=== PATIENT | female | born 1985 | race Caucasian/White ===

== ENCOUNTER 2020-11-26 10:10 | Inpatient (IN) | payer BC, MEDICAID ==
[~2020-11-26] VITALS: Ht 170.2 cm; Wt 70.3 kg
[2020-11-26 10:28] VITALS: BP_SYST 135
--- NOTE | 2020-11-26 10:38 | NUR ---
Patient to ER bed 6 to gown for evaluation. Side rails up. Report given to ARIANNA Godinez.
--- NOTE | 2020-11-26 10:43 | NUR ---
PT C/O HEADACHE WITH STIFF NECK SINCE THURSDAY NIGHT. PT STATES A 6/10 PAIN WITH INTERMITTENT PAIN INCREASE TO 8/10. PT STATES EXEDRIN AND ADVIL NOT HELPING WITH PAIN RELIEF
--- NOTE | 2020-11-26 10:57 | NUR ---
ER Dr. SALAS at bedside examining patient.
[2020-11-26] MEDS ORDERED: NACL 0.9% 1,000 ML IV ONE (11:15)
[2020-11-26 11:31] LABS: BILIRUBIN,URINE NEGATIVE (NEGATIVE); BLOOD, URINE NEGATIVE (NEGATIVE); CLARITY/URINE CLEAR (CLEAR); COLOR,URINE YELLOW (YELLOW); GLUCOSE,URINE NEGATIVE (NEGATIVE); KETONES,URINE NEGATIVE (NEGATIVE); LEUKOCYTE ESTERASE ,URINE NEGATIVE (NEGATIVE); NITRITE, URINE NEGATIVE (NEGATIVE); PROTEIN URINE NEGATIVE (NEGATIVE); UROBILINOGEN,URINE 0.2 (0.2-1.0)
--- NOTE | 2020-11-26 11:48 | NUR ---
Patient transported to radiology via WHEELCHAIR, accompanied by TECH.
[2020-11-26 12:05] LABS: BASOPHILS % (AUTO) 0.7 % (0.0-2.0); EOSINOPHILS % (AUTO) 0.6 % (0.0-4.0); HEMATOCRIT 37.5 % (36-48); HEMOGLOBIN 12.5 g/dL (12.0-16.0); LYMPHOCYTES # (AUTO) 1.1 K/uL (1.0-5.5); LYMPHOCYTES % (AUTO) 16.1 % (20.5-51.5); MEAN CORPUSCULAR HEMOGLOBIN 30 pg (27-31); MEAN CORPUSCULAR HGB CONC 33 % (32-36); MEAN CORPUSCULAR VOLUME 91 fL (79.0-98.0); MONOCYTES # (AUTO) 0.3 K/uL (0.0-1.0); MONOCYTES % (AUTO) 4.5 % (1.7-9.3); NEUTROPHILS # (AUTO) 5.2 K/uL (1.8-7.7); NEUTROPHILS % (AUTO) 78.1 % (40.0-70.0); PLATELET COUNT (AUTO) 206 K/uL (130-430); RED BLOOD CELL COUNT(AUTO) 4.12 MIL/uL (4.2-6.2); RED CELL DISTRIBUTION WIDTH 13.4 % (9.0-15.0); WHITE BLOOD COUNT (AUTO) 6.6 K/uL (4.8-10.8)
[2020-11-26 12:06] LABS: CALCIUM 8.4 mg/dL (8.4-11.0); CREATININE 0.84 mg/dL (0.55-1.30); POTASSIUM 3.7 mmol/L (3.5-5.1)
[2020-11-26 12:12] LABS: ALBUMIN 3.8 g/dL (3.4-4.8); PROTHROMBIN TIME 9.9 SECS (9.5-12.5); TOTAL BILIRUBIN 0.4 mg/dL (0.0-1.0)
--- NOTE | 2020-11-26 12:35 | NUR ---
Dr. Vazquez in to perform procedure.
[2020-11-26] MEDS ORDERED: KETOROLAC TROMETHAMINE 30 MG VIAL IVP ONE (13:00)
[2020-11-26 13:33] LABS: CSF APPEARANCE CLEAR (CLEAR); CSF COLOR COLORLESS (COLORLESS); CSF GLUCOSE 58 mg/dL (40-70); CSF PROTEIN 83 mg/dL (15-45)
[2020-11-26 14:15] LABS: CSF RED BLOOD CELL COUNT 4 /uL (0-0); CSF WHITE BLOOD CELL COUNT 22 /uL (0-5)
[2020-11-26] MEDS ORDERED: cefTRIAXone 2 GM VIAL ONE (14:44)
--- NOTE | 2020-11-26 14:50 | NUR ---
Patient will be admitted to care of Dr. Ordoñez. Admitted to medsurg unit. Waiting for room assignment. Belongings list completed. Complete and up to date summary report printed. SBAR report to be given at bedside with opportunity for questions.
[2020-11-26] MEDS ORDERED: ONDANSETRON HCL 4 MG/2 ML VIAL IVP PRN (15:15)
[2020-11-26] MEDS ORDERED: METOCLOPRAMIDE HCL 10 MG/2 ML VIAL IVP PRN (15:15)
[2020-11-26] MEDS ORDERED: ACYCLOVIR IV 500 MG in D5W 100 ML IV ONE (15:15)
[2020-11-26] MEDS ORDERED: MORPHINE 4 MG INJ. 4 MG/ML VIAL IVP PRN (15:15)
[2020-11-26] MEDS ORDERED: NEU100 (15:23)
[2020-11-26] MEDS ORDERED: SERT100T (15:23)
[2020-11-26] MEDS ORDERED: VANCOMYCIN HCL 1 GM/NS PREMIX 250 ML IV ONE (16:00)
--- NOTE | 2020-11-26 16:00 | NUR ---
Spoke with Luna, treasury accountant of [facility]. Will call back with room number.
--- NOTE | 2020-11-26 16:16 | NUR ---
Report called to ARIANNA Meyer. Per Luna, auto rental supervisor patient to be brought at [id number].
--- NOTE | 2020-11-26 16:25 | NUR ---
Transfer to [facility] via [facility]. EMT present. IV present no signs or symptoms of infiltration.
--- NOTE | 2020-11-26 16:29 | NUR ---
RN note Patient received by technical sales advisor, in stable condition, complains of discomfort. Will provide comfort measures. IV is patent, no signs or symptoms of infiltration. Will continue to monitor.
--- NOTE | 2020-11-26 16:35 | NUR ---
CONSULTATION PAGED/CALLED Reason for Consultation: MENINGITIS Person Who was Notified: ELIAS Consulting Physician: DONTAE CHONG Plastic Sheeting Cutter Specialty: ID Ordering Physician: MELY
--- NOTE | 2020-11-26 17:15 | NUR ---
RN note Spoke with , updated on patients current status. no new orders at this time. Will come see patient.
[2020-11-26 17:58] VITALS: BP_SYST 106
[2020-11-26] MEDS: ACETAMINOPHEN 325 MG TABLET PO PRN (18:22)
--- NOTE | 2020-11-26 18:29 | NUR ---
Closing note Patient is resting in bed, A&Ox4. Complains of spinal and neck pain. Provided PRN medication. No signs or symptoms of respiratory distress. IV is infusing, no signs or symptoms of infiltration. All needs were met. Bed is in lowest position call light within reach, fall and aspiration precautions are in place. Will endorse report to speeder tender
[2020-11-26 20:20] VITALS: BP_SYST 110
[2020-11-26] MEDS: MORPHINE 2 MG/ML INJ. SYRINGE IVP PRN (20:32)
--- NOTE | 2020-11-26 20:32 | NUR ---
PAIN MGT PATIENT MEDICATED WITH MORPHINE FOR C/O HEADACHE/NECK/BACK PAIN. VITAL SIGNS STABLE. BED IN LOWEST LOCKED POSITION WITH ALARM ON. CALL LIGHT WITH IN REACH.
[2020-11-26] MEDS: ACYCLOVIR IV 500 MG in D5W 100 ML IV SCH (21:53)
--- NOTE | 2020-11-26 21:53 | NUR ---
ATB PATIENT DUE ANTIBIOTIC INFUSING. IV LINE INTACT AND PATENT.
--- NOTE | 2020-11-26 22:07 | NUR ---
OOB PATIENT ASSISTED OUT OF BED FOR BATHROOM USE. FALL PRECAUTION OBSERVED.
[2020-11-27] VITALS: BP_SYST 117
[2020-11-27] MEDS ORDERED: VANCOMYCIN HCL 1 GM/NS PREMIX 250 ML IV ONE
[2020-11-27] MEDS: MORPHINE 2 MG/ML INJ. SYRINGE IVP PRN (01:13)
--- NOTE | 2020-11-27 01:13 | NUR ---
PAIN MGT PATIENT MEDICATED WITH MORPHINE FOR C/O HEAD/NECK/BACK PAIN. VITAL SIGNS STABLE.
--- NOTE | 2020-11-27 01:30 | NUR ---
ID CONSULT DR. DONTAE CHONG MAKING ROUNDS FOR ID CONSULT. SEEN AND EXAMINED PATIENT AT BEDSIDE. ACKNOWLEDGE NEW ORDERS MADE.
[2020-11-27] MEDS ORDERED: cefTRIAXone 1 GM VIAL ONE (04:15)
--- NOTE | 2020-11-27 04:28 | NUR ---
ATB NEW ORDER FOR ROCEPHIN 2 GM IV INFUSING. IV LINE INTACT AND PATENT.
[2020-11-27] MEDS: ACYCLOVIR IV 500 MG in D5W 100 ML IV SCH ×3 (06:00→21:53)
--- NOTE | 2020-11-27 06:00 | NUR ---
ATB PATIENT DUE ANTIBIOTIC INFUSING. IV LINE INTACT AND PATENT.
--- NOTE | 2020-11-27 06:20 | NUR ---
MRI CHECKLIST MRI BRAIN CHECKLIST COMPLETED WITH PATIENT.
--- NOTE | 2020-11-27 06:38 | NUR ---
CLOSING NOTES PATIENT NEEDS ATTENDED. NO CHANGE IN CONDITION.
[2020-11-27 07:04] LABS: BASOPHILS % (AUTO) 0.7 % (0.0-2.0); EOSINOPHILS # (AUTO) 0.2 K/uL (0.0-0.4); EOSINOPHILS % (AUTO) 3.1 % (0.0-4.0); HEMATOCRIT 36.6 % (36-48); HEMOGLOBIN 12.1 g/dL (12.0-16.0); LYMPHOCYTES # (AUTO) 1.9 K/uL (1.0-5.5); LYMPHOCYTES % (AUTO) 32.1 % (20.5-51.5); MEAN CORPUSCULAR HEMOGLOBIN 30 pg (27-31); MEAN CORPUSCULAR HGB CONC 33 % (32-36); MEAN CORPUSCULAR VOLUME 92 fL (79.0-98.0); MONOCYTES # (AUTO) 0.4 K/uL (0.0-1.0); MONOCYTES % (AUTO) 6.8 % (1.7-9.3); NEUTROPHILS % (AUTO) 57.3 % (40.0-70.0); PLATELET COUNT (AUTO) 176 K/uL (130-430); RED BLOOD CELL COUNT(AUTO) 3.99 MIL/uL (4.2-6.2); RED CELL DISTRIBUTION WIDTH 13.1 % (9.0-15.0)
[2020-11-27 07:10] LABS: NEUTROPHILS # (AUTO) 3.4 K/uL (1.8-7.7)
--- NOTE | 2020-11-27 07:15 | NUR ---
OPENING NOTES: RECEIVED FROM PLASTIC FRAME INSERTER NURSE. PATIENT IS ASLEEP LAYING IN BED. TOLERATED OXYGEN ON ROOM AIR WITH NO DISTRESS NOTED. IV LINE PATENT AND INTACT WITH NO INFILTRATION NOTED. PATIENT IN STABLE CONDITION. SAFETY, FALL, AND ASPIRATION PRECAUTIONS ARE IN PLACE. BED LOCKED IN LOWEST POSITION AND CALL LIGHT IN REACH. WILL CONTINUE TO MONITOR PATIENT FOR ANY CHANGES.
[2020-11-27 07:18] LABS: ALBUMIN 3.1 g/dL (3.4-4.8); CALCIUM 8.2 mg/dL (8.4-11.0); CREATININE 0.75 mg/dL (0.55-1.30); POTASSIUM 3.8 mmol/L (3.5-5.1); TOTAL BILIRUBIN 0.3 mg/dL (0.0-1.0)
[2020-11-27 08:00] VITALS: BP_SYST 100
[2020-11-27] MEDS ORDERED: SERTRALINE HCL 50 MG TABLET PO ONE (09:45)
[2020-11-27] MEDS: VANCOMYCIN HCL 1 GM/NS PREMIX 250 ML IV SCH ×2 (10:14→18:57)
[2020-11-27] MEDS ORDERED: GADOBENATE DIMEGLUMINE 529 MG/ML, 15 ML VIAL IV ONE (11:42)
--- NOTE | 2020-11-27 11:48 | NUR ---
PATIENT WENT TO MRI VIA WHEEL CHAIR. AWAITING TO COME BACK.
[2020-11-27 12:20] VITALS: BP_SYST 110
[2020-11-27 16:16] VITALS: BP_SYST 111
--- NOTE | 2020-11-27 18:45 | NUR ---
CLOSING NOTES: PATIENT IS ASLEEP LAYING IN BED. TOLERATED OXYGEN ON ROOM AIR WITH NO DISTRESS NOTED. IV LINE PATENT AND INTACT WITH NO INFILTRATION NOTED. PATIENT IN STABLE CONDITION. SAFETY, FALL, AND ASPIRATION PRECAUTIONS REMAINED IN PLACE. BED LOCKED IN LOWEST POSITION AND CALL LIGHT IN REACH. WILL ENDORSE PATIENT CARE TO ONCOMING TACTICAL INTELLIGENCE OFFICER NURSE.
--- NOTE | 2020-11-27 19:30 | NUR ---
OPENING NOTE: RECEIVED CARE OF PT AND BEDSIDE REPORT. PATIENT IS RESTING IN BED. TOLERATING OXYGEN ON ROOM AIR WITH NO DISTRESS NOTED. IV LINE PATENT AND INTACT WITH NO INFILTRATION NOTED. PATIENT IN STABLE CONDITION. SAFETY, FALL, DROPLET, AND ASPIRATION PRECAUTIONS ARE IN PLACE. BED LOCKED IN LOWEST POSITION AND CALL LIGHT IN REACH. WILL CONTINUE TO MONITOR.
[2020-11-27 20:00] VITALS: BP_SYST 102
[2020-11-27] MEDS: ACETAMINOPHEN 325 MG TABLET PO PRN (20:30)
[2020-11-28] VITALS: BP_SYST 95
[2020-11-28] MEDS: VANCOMYCIN HCL 1 GM/NS PREMIX 250 ML IV SCH ×3 (00:37→16:15)
--- NOTE | 2020-11-28 03:48 | NUR ---
RN NOTE: PT RESTING IN BED. NO S/S OF ACUTE DISTRESS. WILL MONITOR.
[2020-11-28] MEDS: ACYCLOVIR IV 500 MG in D5W 100 ML IV SCH ×3 (05:53→22:22)
--- NOTE | 2020-11-28 06:31 | NUR ---
CLOSING NOTE PATIENT IS RESTING IN BED. TOLERATING OXYGEN ON ROOM AIR WITH NO DISTRESS NOTED. IV LINE PATENT AND INTACT WITH NO INFILTRATION NOTED. PATIENT IN STABLE CONDITION. SAFETY, FALL, DROPLET, AND ASPIRATION PRECAUTIONS ARE IN PLACE. BED LOCKED IN LOWEST POSITION AND CALL LIGHT IN REACH. WILL CONTINUE TO MONITOR UNTIL PATIENT CARE IS ENDORSED TO DAY SHIFT RN.
--- NOTE | 2020-11-28 07:54 | NUR ---
OPENING NOTE RECEIVED REPORT FROM NIGHT NURSE. PATIENT IS ALERT AND ORIENTED X4. ON ROOM AIR AND TOLERATING WELL WITH NO SIGNS OF SHORTNESS OF BREATH NOTED. IV IS PATENT, SALINE LOCKED. BED LOCKED AND IN LOWEST POSITION. CALL LIGHT WITHIN REACH. SAFETY AND DROPLET PRECAUTIONS IN PLACE. WILL CONTINUE TO MONITOR.
[2020-11-28 08:00] VITALS: BP_SYST 97
[2020-11-28] MEDS: SERTRALINE HCL 50 MG TABLET PO SCH (08:07)
[2020-11-28 12:15] VITALS: BP_SYST 100
--- NOTE | 2020-11-28 14:36 | NUR ---
IV RE-INSERTION: Complaining of pain to IV site. Restarted on left wrist. Successful after 1 attempt. Will observe for any signs of infiltration.
[2020-11-28 16:31] VITALS: BP_SYST 106
--- NOTE | 2020-11-28 18:31 | NUR ---
CLOSING NOTE PATIENT IS ALERT AND ORIENTED X4. ON ROOM AIR AND TOLERATING WELL WITH NO SIGNS OF SHORTNESS OF BREATH NOTED. IV IS PATENT, SALINE LOCKED. BED LOCKED AND IN LOWEST POSITION. CALL LIGHT WITHIN REACH. SAFETY AND DROPLET PRECAUTIONS IN PLACE. WILL ENDORSE TO NIGHT NURSE.
--- NOTE | 2020-11-28 19:30 | NUR ---
OPENING NOTES: Received report from dayshift nurse. Patient is resting in bed with no s/s of distress and is alert and oriented. She has IV on left wrist with dry and intact dressing. Patient is on room air, tolerating well. Ensured all safety precautions. Bed is locked and in the lowest position, call light within reach.
[2020-11-28] MEDS: ACETAMINOPHEN 325 MG TABLET PO PRN (19:44)
--- NOTE | 2020-11-28 19:44 | NUR ---
PT C/O HEADACHE 09/29 AND IS REQUESTING TYLENOL. SHE DECLINED MORPHINE WHICH WAS ORDERED ACCORDING TO PAIN SCALE. PT STATES SHE WILL TRY TYLENOL BECAUSE SHE FEELS THAT WILL HELP. ADMINISTERED PRN TYLENOL ORDERED, PT TOLERATED WELL. WILL CONTINUE TO MONITOR.
[2020-11-28 20:00] VITALS: BP_SYST 119
[2020-11-28] MEDS: GABAPENTIN 100 MG CAPSULE PO SCH (20:34)
[2020-11-29 00:03] VITALS: BP_SYST 135
[2020-11-29] MEDS: VANCOMYCIN HCL 1 GM/NS PREMIX 250 ML IV SCH ×2 (00:26→08:06)
--- NOTE | 2020-11-29 01:45 | NUR ---
DR. CHONG AT BEDSIDE, PATIENT ALERT AND IN STABLE CONDITION
[2020-11-29] MEDS: ACYCLOVIR IV 500 MG in D5W 100 ML IV SCH ×2 (05:13→13:44)
[2020-11-29 06:46] LABS: BASOPHILS # (AUTO) 0.1 K/uL (0.0-0.2); BASOPHILS % (AUTO) 0.7 % (0.0-2.0); EOSINOPHILS # (AUTO) 0.2 K/uL (0.0-0.4); EOSINOPHILS % (AUTO) 2.4 % (0.0-4.0); HEMATOCRIT 35.8 % (36-48); HEMOGLOBIN 12.1 g/dL (12.0-16.0); LYMPHOCYTES # (AUTO) 1.9 K/uL (1.0-5.5); LYMPHOCYTES % (AUTO) 24.8 % (20.5-51.5); MEAN CORPUSCULAR HEMOGLOBIN 31 pg (27-31); MEAN CORPUSCULAR HGB CONC 34 % (32-36); MEAN CORPUSCULAR VOLUME 90 fL (79.0-98.0); MONOCYTES # (AUTO) 0.6 K/uL (0.0-1.0); MONOCYTES % (AUTO) 7.2 % (1.7-9.3); NEUTROPHILS % (AUTO) 64.9 % (40.0-70.0); PLATELET COUNT (AUTO) 195 K/uL (130-430); RED BLOOD CELL COUNT(AUTO) 3.96 MIL/uL (4.2-6.2); WHITE BLOOD COUNT (AUTO) 7.7 K/uL (4.8-10.8)
[2020-11-29 06:55] LABS: CALCIUM 8.6 mg/dL (8.4-11.0); CREATININE 0.7 mg/dL (0.55-1.30); POTASSIUM 3.6 mmol/L (3.5-5.1)
--- NOTE | 2020-11-29 07:22 | NUR ---
CLOSING NOTES: Patient is resting in bed with no s/s of distress and is alert and oriented. Patient does not have any c/o headache this morning. She has IV on left wrist with dry and intact dressing. Patient is on room air, tolerating well. Ensured all safety precautions. Bed is locked and in the lowest position, call light within reach. All needs were met throughout shift. Endorsed care to dayshift nurse.
[2020-11-29 07:59] LABS: C-REACTIVE PROTEIN QUANT 0.4 mg/dL (0-0.5)
[2020-11-29 08:00] VITALS: BP_SYST 103
[2020-11-29] MEDS: GABAPENTIN 100 MG CAPSULE PO SCH (08:04)
[2020-11-29] MEDS: SERTRALINE HCL 50 MG TABLET PO SCH (08:04)
[2020-11-29 08:19] LABS: ERYTHROCYTE SEDIMENTATION RATE 5 MM/HR (0-20)
[2020-11-29 12:08] VITALS: BP_SYST 114
--- NOTE | 2020-11-29 12:21 | NUR ---
DR. CHONG AT BEDSIDE CLEARED PATIENT FOR DISCHARGE ON PO ANTIBIOTICS.
[2020-11-29] MEDS ORDERED: AMOX-426 PO (16:07)
[2020-11-29] MEDS ORDERED: ACYC200C31 PO (16:07)
[2020-11-29 16:12] VITALS: BP_SYST 130
--- NOTE | 2020-11-29 16:41 | NUR ---
D/C Patient Patient given medication reconciliation form and D/C instructions. Exit Care provided. Patient verbalized understanding. MD discussed with patient the results and treatment provided. Ambulatory with steady gait for discharge to home. Patient in stable condition, ID band removed. IV catheter removed, intact and dressing applied, no active bleeding. All belongings sent with patient.
--- NOTE | 2020-12-02 09:56 | NUR ---
Disposition 01
== END 2020-11-29 16:41 | disposition home or self-care (01) | DRG 76 ==
LOC: SED 10:10 → SMU 14:49
PROVIDERS: ADMIT Internal Medicine Hospice and Palliative Medicine; ATTEND Internal Medicine Hospice and Palliative Medicine
DX: A87.9 Viral meningitis, unspecified (principal); F41.9 Anxiety disorder, unspecified; Z20.822 Contact with and (suspected) exposure to COVID-19; F32.9 Major depressive disorder, single episode, unspecified; Z79.899 Other long term (current) drug therapy
CPT/HCPCS: 36415; 70450-TC; 70553; 71045; 76376; 80048; 80053; 80202; 81003; 82947; 83605; 84157; 85025; 85048; 85610-TC; 85651-TC; 85730-TC; 86140; 87040-TC; 87070-TC; 87086; 87205-TC; 87529; 89051-TC; 93005; 96361; 96365; 96375; 99285; A9577; J0133; J0696; J1885; J2270; J2405; J3370; J7060